=== PATIENT | female | born 1980 | race Caucasian/White ===

== ENCOUNTER 2017-06-24 22:07 | Emergency (ER) | payer BC, OTHER ==
[2017-06-24] MEDS ORDERED: KETOROLAC TROMETHAMINE 30 MG/ML SOL IM ONE (22:47)
[2017-06-24] MEDS ORDERED: SOLUMEDROL 125 MG/2 ML 125 MG/2 ML PDS IM ONE (22:47)
[2017-06-24] MEDS ORDERED: KETOROLAC TROMETHAMINE 30 MG/ML SOL ONE (22:51)
[2017-06-24] MEDS ORDERED: SOLUMEDROL 125 MG/2 ML 125 MG/2 ML PDS ONE (22:52)
[2017-06-24 23:48] VITALS: BP 146/98; PULSE 87; RESP 16; TEMP 97.9; O2SAT 100
== END 2017-06-24 23:31 | disposition home or self-care (01) | DRG 103 ==
LOC: ED 22:07
DX: G43.009 Migraine without aura, not intractable, without status migrainosus (principal); M54.2 Cervicalgia; Z98.1 Arthrodesis status
CPT/HCPCS: 99283; J1885; J2930